=== PATIENT | male | born 1990 | race Asian ===

== ENCOUNTER 2016-08-08 17:41 | Inpatient (IN) | payer MEDICAID ==
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
[2016-08-08] MEDS ORDERED: Sodium Chloride 0.9% 500 ML IV ONE (18:50)
[2016-08-08 19:11] LABS: HEMATOCRIT 47.3 % (39.0-49.0); HEMOGLOBIN 15.4 gm/dL (13.2-17.3); MEAN CELL VOLUME 77.8 fl (80-99); MEAN CORPUSCULAR HEMOGLOBIN 25.3 pg (26.0-30.0); MEAN CORPUSCULAR HGB CONC 32.5 pg (28.0-36.0); MEAN PLATELET VOLUME 8.1 fl; PLATELET COUNT 240 Th/cmm (150-400); RED BLOOD COUNT 6.07 Mil/cmm (4.30-5.70); RED CELL DISTRIBUTION WIDTH 13.2 % (11.5-20.0)
[2016-08-08 19:12] LABS: WHITE BLOOD COUNT 12.3 Th/cmm (4.8-10.8)
[2016-08-08 19:24] LABS: INR 1.03 (0.5-1.4); PROTHROMBIN TIME (TEST) 10.7 SECONDS (9.5-11.5)
[2016-08-08 19:26] LABS: ALB/GLOB RATIO 1.4 (1.0-1.8); ALKALINE PHOSPHATASE 65 U/L (34-104); AMYLASE SERUM 46 U/L (29-103); ANION GAP 10.5 (7.0-16.0); BILIRUBIN,TOTAL 0.6 mg/dL (0.3-1.0); BUN - UREA NITROGEN 17 mg/dL (7-25); BUN/CREATININE RATIO 21.3; CALCIUM SERUM 9.5 mg/dL (8.6-10.3); CARBON DIOXIDE 23.2 mEq/L (21.0-31.0); CHLORIDE 103 mEq/L (98-107); CREATININE - SERUM 0.8 mg/dL (0.7-1.3); GLUCOSE 142 mg/dL (70-105); LIPASE 3 U/L (11-82); POTASSIUM SERUM 3.7 mEq/L (3.5-5.1); SGOT 23 U/L (13-39); SGPT/ALT 27 U/L (7-52); SODIUM SERUM 133 mEq/L (136-145)
[2016-08-08 19:40] LABS: BAND NEUTROPHILE 4 % (0-10); MICROCYTOSIS 1+; NEUTROPHILS 82 % (40-80); PLATELET ESTIMATE ADEQUATE (NORMAL); PLATELET MORPHOLOGY NORMAL (NORMAL); TOTAL CELLS COUNTED 100
[2016-08-08] MEDS ORDERED: IOHEXOL 300MG/ML 100 ML VIAL ONE (19:56)
[2016-08-08] MEDS ORDERED: Piperacillin Sodium/Tazobact 3.375 gm Vial IV ONE (21:34)
[2016-08-08] MEDS ORDERED: HYDROmorphone 1 mg/mL 1mL Syr IVP STA (21:47)
[2016-08-08] MEDS ORDERED: HYDROmorphone 1 mg/mL 1mL Syr ONE (22:04)
[2016-08-09] MEDS: D5-0.45NS w/20 mEq KCL 1,000 ML IV SCH ×2 (00:32→18:35)
[2016-08-09] MEDS: metroNIDAZOLE 500mg/NS 100mL 500 MG/100 ML BAG IV SCH ×4 (00:33→21:46)
--- NOTE | 2016-08-09 03:56 | Admit Criteria Form ---
Admit Criteria Forms - Admit Criteria Diagnosis: INTESTINAL OBSTRUCTION Clinical Indications for Admission to Inpatient Care (Place 'X' for any and all applicable criteria): Admission is indicated for ANY ONE of the following (1)(2)(3)(4)(5): [X]I. Partial bowel obstruction [ ]II. Complete bowel obstruction Extended stay beyond goal length of stay may be needed for(1)(4)(12(: [ ]a) Identified etiology (eg, hernia, volvulus, cancer with obstruction) requiring intervention [ ]b) Gallstone ileus [ ]c) Surgical intervention [ ]d) Acute comorbid illness (eg, electrolyte imbalance, hypovolemia, renal failure) The original [employer] content created by [employer] has been revised. The portions of the content which have been revised are identified through the use of italic text or in bold, and [facility] [email or web address] has neither reviewed nor approved the modified material. All other unmodified content is copyright [employer] ???. Please see references footnoted in the original [employer] ??? edition 2016
[2016-08-09] MEDS ORDERED: Piperacillin Sodium/Tazobact 3.375 gm Vial IV ONE (04:44)
[2016-08-09] MEDS: Morphine Sulfate 2 mg/mL 1mL Syr IVP PRN ×4 (06:01→21:51)
[2016-08-09 06:02] LABS: % BASOPHILS 0.1 % (0.0-2.0); % LYMPHOCYTES 9.9 % (20.0-50.0); % MONOCYTES 11.5 % (2.0-10.0); % NEUTROPHILS 78.5 % (40.0-80.0); HEMATOCRIT 43.9 % (39.0-49.0); HEMOGLOBIN 14.2 gm/dL (13.2-17.3); MEAN CELL VOLUME 77.6 fl (80-99); MEAN CORPUSCULAR HEMOGLOBIN 25.2 pg (26.0-30.0); MEAN CORPUSCULAR HGB CONC 32.4 pg (28.0-36.0); NEUTROPHILE ABSOLUTE 7.6 Th/cmm (1.8-8.0); PLATELET COUNT 218 Th/cmm (150-400); RED BLOOD COUNT 5.66 Mil/cmm (4.30-5.70); RED CELL DISTRIBUTION WIDTH 12.8 % (11.5-20.0)
[2016-08-09 06:10] LABS: WHITE BLOOD COUNT 9.7 Th/cmm (4.8-10.8)
[2016-08-09 06:19] LABS: ALB/GLOB RATIO 1.2 (1.0-1.8); ALKALINE PHOSPHATASE 51 U/L (34-104); ANION GAP 8.4 (7.0-16.0); BILIRUBIN,TOTAL 0.5 mg/dL (0.3-1.0); BUN - UREA NITROGEN 13 mg/dL (7-25); BUN/CREATININE RATIO 16.3; CALCIUM SERUM 8.8 mg/dL (8.6-10.3); CARBON DIOXIDE 25.4 mEq/L (21.0-31.0); CHLORIDE 106 mEq/L (98-107); CREATININE - SERUM 0.8 mg/dL (0.7-1.3); GLUCOSE 135 mg/dL (70-105); POTASSIUM SERUM 3.8 mEq/L (3.5-5.1); SGOT 19 U/L (13-39); SGPT/ALT 22 U/L (7-52); SODIUM SERUM 136 mEq/L (136-145)
[2016-08-09] MEDS ORDERED: VTE Chemical Prophylaxis Screen/Admission MC PRN (09:17)
[2016-08-09] MEDS ORDERED: Diatrizoate Meglumine/Diatri 30 mL Sol PO ONE (09:36)
--- NOTE | 2016-08-09 12:00 | Diagnostic Imaging Report ---
CT scan abdomen and pelvis with intravenous contrast HISTORY: Pain Total DLP equals 409 CTDI equals 8.1 Axial sections were obtained from the xiphoid process down to the pubic symphysis following administration of this contrast. There is a dilated lower esophagus along with marked dilatation of the stomach and multiple loops of small bowel. Findings are consistent with changes of a distal small bowel obstruction. The liver exhibits a homogeneous parenchyma. No focal lesions. Spleen appears normal. No focal abnormalities seen in the region of the pancreas. No focal renal lesions. No abnormal soft tissue masses seen within the pelvis. No abnormal fluid collections. IMPRESSION: 1. Dilated lower esophagus, stomach, and small bowel. Findings consistent with a distal small bowel obstruction.
--- NOTE | 2016-08-09 14:39 | Diagnostic Imaging Report ---
Small bowel follow-through HISTORY: Abdominal distention, obstruction Order soluble contrast was instilled into the stomach gastric tube. There is free flow of contrast from the stomach into the small bowel. Normal small bowel caliber and mucosal pattern. No focal lesions. Transit time is within normal limits. No evidence of any extrinsic masses. IMPRESSION: 1. Negative examination. No evidence of obstruction.
[2016-08-09] MEDS ORDERED: Magnesium Citrate 1.75 GM/300 mL Bottle PO ONE (16:05)
--- NOTE | 2016-08-09 16:35 | History and Physical ---
History of Present Illness - [facility] Chief Complaint: Intractable nausea and vomiting for one day. HPI: The patient is a 26 y old with pmh significant for tbi presented to ER with intractable nausea and vomiting.Enecial work up significant for SBO.The patient was admited to [facility] and GI consultation was obtained. Vital Signs: Last Vital Signs Temp 98.7 F 08/09/16 11:41 Pulse 70 08/09/16 11:41 Resp 19 08/09/16 11:41 BP 111/64 08/09/16 11:41 Pulse Ox 100 08/09/16 11:41 Past Medical History Cardiovascular: Report: Other (TBI with Lt side weakness) Pulmonary: Report: No Pertinent Hx RN BURN: Report: Other (TBI) GI: Report: Other (sbo) Psych: Report: No Pertinent Hx Musculoskeletal: Report: Other (LT side weakness) Rheumatologic: Report: No pertinent Hx Infectious Disease: Report: No Pertinent Hx Renal/: Report: No Pertinent Hx Endocrine: Report: No Pertinent Hx - Past Surgical History Past Surgical History: No pertinent Hx Family Medical History - Family Member Mother History Unknown: Yes Ethnicity: Non- Social History Smoke: No Alcohol: None Drugs: None Lives: Alone Domestic Violence: Negative - Medications Home Medications: Home Medication Medication Instructions Recorded Type NK [No Home Meds] 08/08/16 History - Allergies Allergies/Adverse Reactions: Allergies Allergy/AdvReac Type Severity Reaction Status Date / Time No Known Allergies Allergy Verified 08/08/16 17:59 Review of Systems - Review of Systems Constitutional: Denies: Fever, Sweats, Malaise Eyes: Denies: Pain, Conjunctivae Inflammation, Redness ENT: Denies: Ear Pain, Ear Discharge, Nose Pain, Nose Congestion, Mouth Pain, Mouth Swelling, Throat Swelling Respiratory: Denies: Cough, Dry, Hemoptysis, SOB with Excertion, Sputum, Wheezing Cardiovascular: Denies: Chest Pain, Palpitations, Paroxysmal Noc. Dyspnea, Edema Gastrointestinal: Report: Nausea, Vomiting, Diarrhea Genitourinary: Denies: Dysuria, Incontinence, Retention Musculoskeletal: Denies: Neck Pain, Shoulder Pain, Back Pain, Hand Pain, Foot Pain Skin: Denies: Rash, Catalino Neurological: Denies: Weakness, Numbness, Incoordination, Change in Speech, Confusion, Seizures Physical Exam - Physical Exam HEENT: Report: Ears Nose Throat Within Normal Limits Neck: Report: WNL Cardiovascular Systems: Report: +s1/s2 noted, Regular, Rate and Rhythm, no murmurs noted Respiratory: Report: Clear to Auscultation of lung moreno, Breath Sounds are within normal limits Abdomen: Report: Non-tender to palpation, Abnormal Bowel Sounds. Denies: Rebound upon palpation, Mass palpated Back: Report: Inspection of back is within normal limits., CVA Tenderness noted on the right flank Extremities: Report: Non-tender to palpation., Patient had full range of motion Skin: Report: Color of skin is within normal limits, Warm Neuro/Psych: Report: Weakness or sensory loss noted. - Lab Results All Lab Results last 24 hours: Laboratory Last Values WBC 9.7 Th/cmm (4.8-10.8) D 08/09/16 05:21 RBC 5.66 Mil/cmm (4.30-5.70) 08/09/16 05:21 Hgb 14.2 gm/dL (13.2-17.3) 08/09/16 05:21 Hct 43.9 % (39.0-49.0) 08/09/16 05:21 MCV 77.6 fl (80-99) L 08/09/16 05:21 MCH 25.2 pg (26.0-30.0) L 08/09/16 05:21 MCHC Differential 32.4 pg (28.0-36.0) 08/09/16 05:21 RDW 12.8 % (11.5-20.0) 08/09/16 05:21 Plt Count 218 Th/cmm (150-400) 08/09/16 05:21 MPV 8.0 fl 08/09/16 05:21 Neutrophils % 78.5 % (40.0-80.0) 08/09/16 05:21 Band Neutrophils % 4 % (0-10) 08/08/16 19:04 Lymphocytes % 9.9 % (20.0-50.0) L 08/09/16 05:21 Monocytes % 11.5 % (2.0-10.0) H 08/09/16 05:21 Eosinophils % 0.0 % (0.0-5.0) 08/09/16 05:21 Basophils % 0.1 % (0.0-2.0) 08/09/16 05:21 Neutrophils (Manual) 82 % (40-80) H 08/08/16 19:04 Lymphocytes 10 % (20-50) L 08/08/16 19:04 Monocytes 4 % (2-10) 08/08/16 19:04 Platelet Estimate ADEQUATE (NORMAL) 08/08/16 19:04 Platelet Morphology NORMAL (NORMAL) 08/08/16 19:04 Microcytosis 1+ 08/08/16 19:04 RBC Morph Micro Appear ABNORMAL (NORMAL) 08/08/16 19:04 PT 10.7 SECONDS (9.5-11.5) 08/08/16 19:04 INR 1.03 (0.5-1.4) 08/08/16 19:04 PTT (Actin FS) 27.0 SECONDS (26.0-38.0) 08/08/16 19:04 Sodium 136 mEq/L (136-145) 08/09/16 05:21 Potassium 3.8 mEq/L (3.5-5.1) 08/09/16 05:21 Chloride 106 mEq/L (98-107) 08/09/16 05:21 Carbon Dioxide 25.4 mEq/L (21.0-31.0) 08/09/16 05:21 Anion Gap 8.4 (7.0-16.0) 08/09/16 05:21 BUN 13 mg/dL (7-25) 08/09/16 05:21 Creatinine 0.8 mg/dL (0.7-1.3) 08/09/16 05:21 Est GFR ( Amer) > 60.0 ml/min (>90) 08/09/16 05:21 Est GFR (Non-Af Amer) > 60.0 ml/min 08/09/16 05:21 BUN/Creatinine Ratio 16.3 08/09/16 05:21 Glucose 135 mg/dL (70-105) H 08/09/16 05:21 Whole Bld Lactic Acid 1.61 mmol/L (0.60-1.99) 08/08/16 19:04 Calcium 8.8 mg/dL (8.6-10.3) 08/09/16 05:21 Total Bilirubin 0.5 mg/dL (0.3-1.0) 08/09/16 05:21 AST 19 U/L (13-39) 08/09/16 05:21 ALT 22 U/L (7-52) 08/09/16 05:21 Alkaline Phosphatase 51 U/L (34-104) 08/09/16 05:21 Total Protein 6.9 gm/dL (6.0-8.3) 08/09/16 05:21 Albumin 3.8 gm/dL (4.2-5.5) L 08/09/16 05:21 Globulin 3.1 gm/dL 08/09/16 05:21 Albumin/Globulin Ratio 1.2 (1.0-1.8) 08/09/16 05:21 Amylase 46 U/L (29-103) 08/08/16 19:04 Lipase 3 U/L (11-82) L 08/08/16 19:04 Laboratory Results - last 24 hr 08/09/16 08/09/16 05:21 05:21 WBC 9.7 D RBC 5.66 Hgb 14.2 Hct 43.9 MCV 77.6 L MCH 25.2 L MCHC Differential 32.4 RDW 12.8 Plt Count 218 MPV 8.0 Neutrophils % 78.5 Lymphocytes % 9.9 L Monocytes % 11.5 H Eosinophils % 0.0 Basophils % 0.1 Sodium 136 Potassium 3.8 Chloride 106 Carbon Dioxide 25.4 Anion Gap 8.4 BUN 13 Creatinine 0.8 Est GFR ( Amer) > 60.0 Est GFR (Non-Af Amer) > 60.0 BUN/Creatinine Ratio 16.3 Glucose 135 H Calcium 8.8 Total Bilirubin 0.5 AST 19 ALT 22 Alkaline Phosphatase 51 Total Protein 6.9 Albumin 3.8 L Globulin 3.1 Albumin/Globulin Ratio 1.2 - Assessment Assessment: Current Active Problems Problem Status Onset EPIGASTRIC PAIN WITH NAUSEA/VOMITING Acute 1.Acute SBO. - Plan Plan: 1.Admit to medical floor. 2.IV fluid. 3.Intermitente suction. 4.GI consultation.
--- NOTE | 2016-08-09 17:11 | Consultation ---
Consult Note - Consult Note Service Date: 08/09/16 Referring Physician: Howard Mercedes Consult Note: PHYSICIAN Consultation Note: Date of Admission: 08/08/16 Purpose of Consultation: GI evaluation Chief Complaint: 26 years old presenting was nausea vomiting and diarrhea History of Present Illness: Patient LUIS BUENO was admitted to [facility] I with 2 days of abdominal pain nausea vomiting and diarrhea when he came to the hospital CAT scan showed dilated bowel loops on possible small bowel obstruction Past Medical History: Traumatic brain injury ,cerebral palsy, hemiplegia Diagnoses CEREBRAL PALSY, UNSPECIFIED (08/08/16) HEMIPLEGIA, UNSPECIFIED AFFECTING LEFT NONDOMINANT SIDE (08/08/16) UNSPECIFIED INTESTINAL OBSTRUCTION (08/08/16) UNSPECIFIED ABDOMINAL PAIN (08/08/16) Allergies Allergy/AdvReac Type Severity Reaction Status Date / Time No Known Allergies Allergy Verified 08/08/16 17:59 Vital Signs Temp 98.7 F 08/09/16 11:41 Pulse 70 08/09/16 11:41 Resp 19 08/09/16 11:41 BP 111/64 08/09/16 11:41 Pulse Ox 100 08/09/16 11:41 Intake & Output 08/08/16 08/09/16 08/09/16 18:59 06:59 18:59 Intake Total 300 150 Output Total 250 Balance 50 150 Weight (lbs) 57.833 kg Intake: Intake, IV Amount 300 150 Piperacillin Sodium/ 50 50 Tazobact 3.375 gm In Sodium Chloride 0.9% 50 ml @ 100 mls/hr IV Q6H [facility] Rx#:[id number] Piperacillin Sodium/ 50 Tazobact 3.375 gm In Sodium Chloride 0.9% 50 ml @ 100 mls/hr IV X1 ONE Rx#:[id number] metroNIDAZOLE 500mg/NS 200 100 100mL 500 mg In 100 ml @ 100 mls/hr IV Q8HR [facility] Rx #:[id number] Output: Gastric Drainage 250 Laboratory Results - last 24 hr 08/09/16 08/09/16 05:21 05:21 WBC 9.7 D RBC 5.66 Hgb 14.2 Hct 43.9 MCV 77.6 L MCH 25.2 L MCHC Differential 32.4 RDW 12.8 Plt Count 218 MPV 8.0 Neutrophils % 78.5 Lymphocytes % 9.9 L Monocytes % 11.5 H Eosinophils % 0.0 Basophils % 0.1 Sodium 136 Potassium 3.8 Chloride 106 Carbon Dioxide 25.4 Anion Gap 8.4 BUN 13 Creatinine 0.8 Est GFR ( Amer) > 60.0 Est GFR (Non-Af Amer) > 60.0 BUN/Creatinine Ratio 16.3 Glucose 135 H Calcium 8.8 Total Bilirubin 0.5 AST 19 ALT 22 Alkaline Phosphatase 51 Total Protein 6.9 Albumin 3.8 L Globulin 3.1 Albumin/Globulin Ratio 1.2 Home Medication Medication Instructions Recorded Type NK [No Home Meds] 08/08/16 History Current Medications Generic Name Dose Route Start Last Admin Trade Name Freq PRN Reason Stop Dose Admin Potassium Chloride/Dextrose/Sod Cl 1,000 mls @ 100 mls/hr 08/08/16 23:27 04/23 00:32 D5-0.45ns W/20 Meq Kcl IV 10/07/16 23:26 100 mls/hr .Q10H MARY Administration Metronidazole 500 mg in 100 mls @ 100 mls/hr 08/09/16 00:00 08/09/16 13:07 Flagyl IV 10/08/16 00:00 Infused Q8HR MARY Infusion Piperacillin Sod/Tazobactam 50 mls @ 100 mls/hr 08/09/16 04:00 08/09/16 10:54 Sod 3.375 gm/ Sodium Chloride IV 10/08/16 03:59 Infused Q6H MARY Infusion Miscellaneous 1 ea 08/09/16 09:17 Vte Chemical Prophylaxis Screen/ Admission 10/08/16 09:16 PRN PRN PROTOCOL Morphine Sulfate 2 mg 08/08/16 23:33 08/09/16 15:27 Morphine IVP 10/07/16 23:32 2 mg Q4H PRN Administration Pain (Severe) Ondansetron HCl 4 mg 08/08/16 23:27 Zofran IV 10/07/16 23:26 Q4H PRN Nausea / Vomiting Pantoprazole Sodium 40 mg 08/09/16 09:00 08/09/16 08:54 Protonix IVP 10/08/16 08:59 40 mg DAILY MARY Administration Review of Systems: No chest pain or shortness of breath no GI bleed no weight loss. Social History Smoking Status Never smoker Nonalcoholic non-IV drug abuse. Family Medical History Family Medical History Start: 08/08/16 23: 24 Freq: ONCE Status: Active Document 08/08/16 23:24 LSUN (Rec: 08/09/16 02:22 [id number] [id number]) Family Medical History Mother History Unknown Yes Ethnicity Non- Physical Exam: General: Alert and Oriented x3, No Acute Distress HEENT: EOMI Bilaterally, PERRLA Bilaterally, Head is normocephalic, atraumatic on inspection. Cardio: +S1/S2 Auscultated, RRR, no murmurs/rubs/gallops noted Respiratory: Clear to Auscultate Bilaterally Abdominal: Soft, Nondistended, Nontender to palpation x 4 quadrants There is a scalloped previous surgery and a scope previous G-tube. Genital/Urinary: Extremities: No Edema noted in the lower extremities Neurological: Cranial Nerves II-XII intact bilaterally, patient is weak on the left side with some deformity of the upper extremity Imaging studies. CAT scan showed dilated loops of bowel possible obstruction a small bowel follow -through was negative. Assessment/Plan: 1 ileus versus gastroenteritis. Clinically better. A lot of magnesium citrate and clear liquid diet. If patient tolerates clear liquid diet and would she than jejunal and would continuous feedings. If not would continue his NG to low intermittent suction and get a KUB in the morning. Other medical problems such as history of cerebral palsy and hemiplegia as per Dr. Mago Farr, Verito Gonzalez [id number]
[2016-08-10] MEDS: metroNIDAZOLE 500mg/NS 100mL 500 MG/100 ML BAG IV SCH ×3 (04:57→20:09)
[2016-08-10] MEDS: Morphine Sulfate 2 mg/mL 1mL Syr IVP PRN ×2 (05:46→09:50)
[2016-08-10] MEDS: D5-0.45NS w/20 mEq KCL 1,000 ML IV SCH ×2 (07:41→22:11)
[2016-08-11] MEDS: Morphine Sulfate 2 mg/mL 1mL Syr IVP PRN (04:06)
[2016-08-11] MEDS: metroNIDAZOLE 500mg/NS 100mL 500 MG/100 ML BAG IV SCH ×2 (04:48→13:27)
[2016-08-11 05:30] LABS: % EOSINOPHILS 2.9 % (0.0-5.0); % LYMPHOCYTES 37.4 % (20.0-50.0); % MONOCYTES 14.8 % (2.0-10.0); % NEUTROPHILS 44.9 % (40.0-80.0); HEMATOCRIT 42.9 % (39.0-49.0); HEMOGLOBIN 13.8 gm/dL (13.2-17.3); MEAN CELL VOLUME 78.1 fl (80-99); MEAN CORPUSCULAR HEMOGLOBIN 25.2 pg (26.0-30.0); MEAN CORPUSCULAR HGB CONC 32.3 pg (28.0-36.0); MEAN PLATELET VOLUME 8.1 fl; NEUTROPHILE ABSOLUTE 2.3 Th/cmm (1.8-8.0); PLATELET COUNT 209 Th/cmm (150-400); RED BLOOD COUNT 5.49 Mil/cmm (4.30-5.70); RED CELL DISTRIBUTION WIDTH 12.9 % (11.5-20.0)
[2016-08-11 05:42] LABS: ANION GAP 4.7 (7.0-16.0); BUN - UREA NITROGEN 4 mg/dL (7-25); CALCIUM SERUM 8.6 mg/dL (8.6-10.3); CARBON DIOXIDE 27.1 mEq/L (21.0-31.0); CHLORIDE 108 mEq/L (98-107); CREATININE - SERUM 0.8 mg/dL (0.7-1.3); GLUCOSE 103 mg/dL (70-105); POTASSIUM SERUM 3.8 mEq/L (3.5-5.1); SODIUM SERUM 136 mEq/L (136-145)
[2016-08-11] MEDS ORDERED: Morphine Sulfate 4 mg/mL 1mL Syr IVP PRN (11:10)
== END 2016-08-11 15:00 | disposition home or self-care (01) | DRG 249 ==
LOC: ER 17:41 → MSI 22:15
PROVIDERS: ADMIT Family Medicine; ATTEND Family Medicine
DX: K52.9 Noninfective gastroenteritis and colitis, unspecified (principal); G81.94 Hemiplegia, unspecified affecting left nondominant side; K56.7 Ileus, unspecified; G80.9 Cerebral palsy, unspecified; R19.7 Diarrhea, unspecified
CPT/HCPCS: 36415-UA; 74250-TC; 80048-TC; 80053-TC; 82150-TC; 83605; 83690-TC; 85007-TC; 85025-TC; 85027-TC; 85610-TC; 90784; 90799; 96375; C9113; J1170; J2270; J2405; J2543; J7040; Q9967; Z7610